=== PATIENT | female | born 1970 | race Two or more races ===

== ENCOUNTER 2021-04-29 10:32 | Emergency (ER) | payer OTHER ==
[~2021-04-29] VITALS: Ht 165.1 cm; Wt 77.1 kg
[2021-04-29 11:48] VITALS: BP 147/94
== END 2021-04-29 12:15 | disposition home or self-care (01) ==
LOC: ER 10:32
DX: H10.9 Unspecified conjunctivitis (principal); I10 Essential (primary) hypertension; Z88.2 Allergy status to sulfonamides